=== PATIENT | male | born 1960 | race Caucasian/White ===

== ENCOUNTER 2018-01-25 07:18 | Emergency (ER) | payer SELFPAY ==
[~2018-01-25] VITALS: Ht 165.1 cm; Wt 79.4 kg
[2018-01-25 07:27] VITALS: BP 166/92
[2018-01-25] MEDS ORDERED: METOPROLOL 25 MG TAB PO ONE (07:50)
[2018-01-25] MEDS ORDERED: ASPIRIN 81 MG TAB.CHEW PO ONE (07:50)
[2018-01-25] MEDS ORDERED: NACL 0.9% 1,000 ML IV ONE (07:50)
[2018-01-25 08:10] LABS: BASOPHILS % (AUTO) 0.8 % (0.0-2.0); EOSINOPHILS # (AUTO) 0.1 K/uL (0-0.4); EOSINOPHILS % (AUTO) 1.5 % (0.0-4.0); HEMATOCRIT 42.6 % (36-52); HEMOGLOBIN 14.3 g/dL (12.0-18.0); LYMPHOCYTES # (AUTO) 1.3 K/uL (2.0-11.5); LYMPHOCYTES % (AUTO) 25.9 % (20.5-51.1); MEAN CORPUSCULAR HEMOGLOBIN 31 pg (27-31); MEAN CORPUSCULAR HGB CONC 34 g/dL (33-37); MEAN CORPUSCULAR VOLUME 92.2 fL (80-94); MONOCYTES # (AUTO) 0.3 K/uL (0.8-1.0); MONOCYTES % (AUTO) 5.9 % (1.7-9.3); NEUTROPHILS # (AUTO) 3.4 K/uL (1.8-7.7); NEUTROPHILS % (AUTO) 65.9 % (42.2-75.2); PLATELET COUNT (AUTO) 260 K/uL (140-450); RED BLOOD CELL COUNT(AUTO) 4.62 MIL/uL (4.20-6.10); RED CELL DISTRIBUTION WIDTH 13.8 % (11.6-13.7); WHITE BLOOD COUNT (AUTO) 5.2 K/uL (4.8-10.8)
[2018-01-25 08:34] LABS: ANION GAP 11.3 (8-16); CARBON DIOXIDE 26.9 mmol/L (21-32); POTASSIUM 4.2 mmol/L (3.5-5.1)
[2018-01-25 08:35] LABS: CREATININE 0.7 mg/dL (0.7-1.3)
[2018-01-25 08:55] LABS: PROTHROMBIN TIME 9.4 secs (10.8-13.4)
[2018-01-25 09:27] LABS: ALBUMIN 3.9 g/dL (3.4-5.0); TOTAL BILIRUBIN 0.7 mg/dL (0.0-1.0)
[2018-01-25 10:34] VITALS: BP 136/88
== END 2018-01-25 10:36 | disposition home or self-care (01) ==
LOC: MED 07:18
DX: G93.89 Other specified disorders of brain (principal); R03.0 Elevated blood-pressure reading, without diagnosis of hypertension; H90.2 Conductive hearing loss, unspecified; R20.0 Anesthesia of skin; Z88.6 Allergy status to analgesic agent
CPT/HCPCS: 36415; 70450; 71045; 80053; 82948; 84484; 85025; 85610; 85730; 93005; 99285; J7030

== ENCOUNTER 2019-02-15 14:04 | Inpatient (IN) | payer OTHER ==
[~2019-02-15] VITALS: Ht 154.9 cm; Wt 74.8 kg
[2019-02-15 14:10] VITALS: BP 137/67
[2019-02-15] MEDS ORDERED: ASPIRIN 81 MG TAB.CHEW PO ONE (14:40)
[2019-02-15] MEDS ORDERED: NACL 0.9% 1,000 ML IV ONE (14:40)
--- NOTE | 2019-02-15 14:53 | NUR ---
blood collected and handed to lab
[2019-02-15 14:59] LABS: BASOPHILS % (AUTO) 0.6 % (0.0-2.0); EOSINOPHILS # (AUTO) 0.1 K/uL (0-0.4); EOSINOPHILS % (AUTO) 1.6 % (0.0-4.0); HEMATOCRIT 41.2 % (36-52); HEMOGLOBIN 13.7 g/dL (12.0-18.0); LYMPHOCYTES # (AUTO) 1.4 K/uL (2.0-11.5); LYMPHOCYTES % (AUTO) 19.1 % (20.5-51.1); MEAN CORPUSCULAR HEMOGLOBIN 31 pg (27-31); MEAN CORPUSCULAR HGB CONC 33 g/dL (33-37); MEAN CORPUSCULAR VOLUME 94.2 fL (80-94); MONOCYTES # (AUTO) 0.4 K/uL (0.8-1.0); MONOCYTES % (AUTO) 5.5 % (1.7-9.3); NEUTROPHILS # (AUTO) 5.4 K/uL (1.8-7.7); NEUTROPHILS % (AUTO) 73.2 % (42.2-75.2); PLATELET COUNT (AUTO) 269 K/uL (140-450); RED BLOOD CELL COUNT(AUTO) 4.37 MIL/uL (4.20-6.10); WHITE BLOOD COUNT (AUTO) 7.4 K/uL (4.8-10.8)
[2019-02-15 15:10] LABS: PROTHROMBIN TIME 9.3 secs (10.8-13.4)
[2019-02-15 15:13] LABS: ANION GAP 13.2 (8-16); CARBON DIOXIDE 25.9 mmol/L (21-32); CREATININE 0.7 mg/dL (0.7-1.3); POTASSIUM 4.1 mmol/L (3.5-5.1)
--- NOTE | 2019-02-15 15:14 | NUR ---
PT ARRIVED TO ED C/O CHEST PAIN AND LIGHT HEADEDNESS X 3DAYS. PT DESCRIBES PAIN CRUSHING AND RATES PAIN 6/10. LUNG SOUNDS NORMAL THROUGHOUT. NO RESP DISTRESS. HEART SOUND REGULARLY IRREGULAR. PULSES IRREGULAR. CAP REFILL < 3. VS STABLE. NKA. DENIES PMH.
[2019-02-15 15:20] LABS: ALBUMIN 3.7 g/dL (3.4-5.0); TOTAL BILIRUBIN 0.3 mg/dL (0.0-1.0)
[2019-02-15] MEDS ORDERED: DOCUSATE SODIUM 100 MG GELCAP PO PRN (16:05)
[2019-02-15] MEDS ORDERED: ONDANSETRON 4 MG/2 ML VIAL IM/IVP PRN (16:05)
[2019-02-15] MEDS ORDERED: ACETAMINOPHEN 325 MG TAB PO PRN (16:05)
[2019-02-15] MEDS ORDERED: HYDROcodone/APAP 7.5/325 MG 1 TAB PO PRN (16:05)
[2019-02-15] MEDS ORDERED: KETOROLAC 30 MG/ML VIAL IVP PRN (16:05)
[2019-02-15] MEDS ORDERED: MORPHINE SULFATE 2 MG/ML SYR IVP PRN (16:05)
--- NOTE | 2019-02-15 16:26 | NUR ---
PT LAYING COMFORTABLY IN BED, NO GRIMACING, DENIES PAIN, AND IS USING CELL PHONE.
--- NOTE | 2019-02-15 17:15 | NUR ---
PATEINT TAKEN DOWN TO [facility]
[2019-02-15 17:19] LABS: APPEARANCE,URINE CLEAR (CLEAR); BILIRUBIN,URINE NEGATIVE (NEGATIVE); BLOOD, URINE NEGATIVE (NEGATIVE); COLOR,URINE YELLOW (YELLOW); LEUKOCYTE ESTERASE ,URINE NEGATIVE (NEGATIVE); NITRITE, URINE NEGATIVE (NEGATIVE); UGLUCOSE NEGATIVE (NEGATIVE)
[2019-02-15 17:22] LABS: CHOL/HDL RATIO 2.9 (1-4.5); FREE T4 (FREE THYROXINE) 0.82 ng/dL (0.76-1.46); HDL CHOLESTEROL 64 mg/dL (40-60); LDL (CALC) 99 mg/dL (60-100); LIPASE 224 U/L (73-393); MAGNESIUM 1.9 mg/dL (1.8-2.4); PHOSPHORUS 3.9 mg/dL (2.5-4.9); THYROID STIMULATING HORMONE 3.39 uIU/mL (0.34-3.74); TRIGLYCERIDES 125 mg/dL (30-150)
--- NOTE | 2019-02-15 17:23 | NUR ---
Patient will be admitted to care of [facility] . Admited to TELE. Will go to room 113. Belongings list completed. Report to MARY ANN ESPOSITO.
[2019-02-15 17:40] VITALS: BP 157/59
[2019-02-15] MEDS: NACL 0.9% 1,000 ML IV SCH (18:05)
--- NOTE | 2019-02-15 19:15 | NUR ---
RECEIVED PT IN STABLE CONDITION FROM CO NURSE FOR CONTINUITY OF CARE. AWAKE,ALERT AND ORIENTED X4. ON TELE MONITOR-SB. NO C/O ANY DISCOMFORT NOR PAIN NOTED AT THIS TIME. WITH IVF INFUSING WELL ON THE LT FAG#20 . CLEAR AND PATENT. PLAN OF CARE DISCUSSED AND VERBALIZED UNDERSTANDING. BED ON LOW POSITION. CALL LIGHT AND URINAL WITHIN EASY REACH. SIDE RAILS UP X2. WILL CONTINUE TO MONITOR.
[2019-02-15 19:45] VITALS: BP 153/52
--- NOTE | 2019-02-15 22:00 | NUR ---
PATIENT REFUSED EKG. RESIDENT AWARE
--- NOTE | 2019-02-15 22:00 | NUR ---
PT REFUSED BLOOD DRAW AT THIS TIME. DR. FERNANDEZ MADE AWARE.
[2019-02-16 00:55] VITALS: BP 130/78
--- NOTE | 2019-02-16 00:55 | NUR ---
VITAL SIGNS TAKEN. BP 130/78, HR-69. O2 SAT 99% ON ROOM AIR. WILL CONTINUE TO MONITOR.
--- NOTE | 2019-02-16 01:39 | NUR ---
CHECK ON PT ASLEEP. WITH NO S/S OF ANY DISTRESS NOTED. WILL CONTINUE TO MONITOR.
--- NOTE | 2019-02-16 04:00 | NUR ---
MADE ROUNDS. VITAL SIGNS TAKEN. NO C/O ANY DISCOMFORT NOTED.
[2019-02-16 04:10] VITALS: BP 133/67
[2019-02-16] MEDS: NACL 0.9% 1,000 ML IV SCH ×2 (04:35→05:58)
--- NOTE | 2019-02-16 06:00 | NUR ---
NEW IV BAG HUNG.INFUSING WELL. NO C/O ANY PAIN NOTED. WILL CONTINUE TO MONITOR.
--- NOTE | 2019-02-16 07:15 | NUR ---
ENDORSED PT IN STABLE CONDITION TO AM NURSE.
--- NOTE | 2019-02-16 07:20 | NUR ---
RECEIVED BEDSIDE REPORT FROM NIGHT NURSE. PT IN STABLE CONDITION. AAOX4. RESPIRATIONS EVEN AND UNLABORED. SKIN INTACT. IV IN PLACE L FA 20G INFUSING PER ORDER. ON ROOM AIR. PT DENIES PAIN. COOPERATIVE. SAFETY MEASURES IN PLACE. BED IN LOW POSITION. CALL LIGHT WITHIN REACH. WILL CONTINUE TO MONITOR.
[2019-02-16 08:00] VITALS: BP 153/60
[2019-02-16 08:06] LABS: BASOPHILS % (AUTO) 0.6 % (0.0-2.0); EOSINOPHILS # (AUTO) 0.1 K/uL (0-0.4); EOSINOPHILS % (AUTO) 2.6 % (0.0-4.0); HEMATOCRIT 39.9 % (36-52); HEMOGLOBIN 13.2 g/dL (12.0-18.0); LYMPHOCYTES # (AUTO) 1.5 K/uL (2.0-11.5); LYMPHOCYTES % (AUTO) 27.6 % (20.5-51.1); MEAN CORPUSCULAR HEMOGLOBIN 31 pg (27-31); MEAN CORPUSCULAR HGB CONC 33 g/dL (33-37); MEAN CORPUSCULAR VOLUME 93.8 fL (80-94); MONOCYTES # (AUTO) 0.4 K/uL (0.8-1.0); MONOCYTES % (AUTO) 6.3 % (1.7-9.3); NEUTROPHILS # (AUTO) 3.5 K/uL (1.8-7.7); NEUTROPHILS % (AUTO) 62.9 % (42.2-75.2); PLATELET COUNT (AUTO) 247 K/uL (140-450); RED BLOOD CELL COUNT(AUTO) 4.25 MIL/uL (4.20-6.10); RED CELL DISTRIBUTION WIDTH 14.1 % (11.6-13.7); WHITE BLOOD COUNT (AUTO) 5.6 K/uL (4.8-10.8)
--- NOTE | 2019-02-16 08:14 | NUR ---
PATIENT HAS BEEN SCREENED AND CATEGORIZED MODERATE NUTRITION RISK. PATIENT WILL BE SEEN WITHIN 3-5 DAYS OF ADMISSION. 02/18/19 02/20/[address]
[2019-02-16 08:37] LABS: ANION GAP 9.6 (8-16); CARBON DIOXIDE 27.5 mmol/L (21-32); CREATININE 0.7 mg/dL (0.7-1.3); POTASSIUM 4.1 mmol/L (3.5-5.1)
[2019-02-16] MEDS: ASPIRIN 81 MG TAB.CHEW PO SCH (08:39)
[2019-02-16] MEDS: ATORVASTATIN 20 MG TAB PO SCH (08:39)
--- NOTE | 2019-02-16 08:49 | NUR ---
MEDICATIONS ADMINISTERED PER ORDER. PT TOLERATED WELL. NO DISTRESS NOTED. WILL CONTINUE TO MONITOR.
[2019-02-16 09:45] LABS: CHOL/HDL RATIO 2.8 (1-4.5)
--- NOTE | 2019-02-16 11:30 | NUR ---
VITAL SIGNS TAKEN. PT AWAKE AND COOPERATIVE. NO PAIN OR DISTRESS REPORTED. SAFETY MEASURES IN PLACE. WILL CONTINUE TO MONITOR.
[2019-02-16 12:00] VITALS: BP 144/73
[2019-02-16] MEDS ORDERED: SERTRALINE 50 MG TAB PO SCH (13:00)
--- NOTE | 2019-02-16 13:12 | NUR ---
MEDICATIONS ADMINISTERED PER ORDER. PT TOLERATED WELL. WILL CONTINUE TO MONITOR.
[2019-02-16 16:00] VITALS: BP 144/68
--- NOTE | 2019-02-16 17:14 | NUR ---
ADMINISTERED MEDICATION PER ORDER. PT TOLERATED WELL. NO DISTRESS NOTED. WILL CONTINUE TO MONITOR.
--- NOTE | 2019-02-16 19:15 | NUR ---
REPORT GIVEN TO NIGHT NURSE FOR CONTINUITY OF CARE. PT IN STABLE CONDITION.
--- NOTE | 2019-02-16 19:20 | NUR ---
RECEIVED PT IN STABLE CONDITION FROM AM NURSE. AWAKE,ALERT AND ORIENTED X4. ON TELE MONITOR-SB. WITH NO C/O ANY DISCOMFORT NOR PAIN NOTED AT THIS TIME. HAS IVF INFUSING WELL ON THE LT FA g20 . CLEAR AND PATENT. PLAN OF CARE DISCUSSED AND VERBALIZED UNDERSTANDING. MADE AWARE ABOUT THE PROCEDURE TOM. WITT. BED ON LOW POSITION. FREQ ROUNDS NEEDED. SIDE RAILS UP X2. CALL LIGHT AND URINAL WITHIN EASY REACH. WILL CONTINUE TO MONITOR.
[2019-02-16 19:53] VITALS: BP 139/52
[2019-02-16] MEDS ORDERED: QUEtiapine FUMARATE 25 MG TAB PO SCH (21:00)
--- NOTE | 2019-02-16 21:00 | NUR ---
DUE MEDS GIVEN ORDERED. NO C/O MANY DISCOMFORT NOTED. WILL CONTINUE TO MONITOR.
--- NOTE | 2019-02-16 22:30 | NUR ---
CHECKED ON PT. ASLEEP. NO S/S OF ANY DISTRESS NOTED. WILL CONTINUE TO MONITOR.
[2019-02-17 00:15] VITALS: BP 126/42
--- NOTE | 2019-02-17 00:15 | NUR ---
MADE ROUNDS. VITAL SIGNS TAKEN. STABLE. NO V/CO ANY PAIN NOR DISCOMFORT NOTED.
[2019-02-17 04:02] VITALS: BP 138/49
--- NOTE | 2019-02-17 04:30 | NUR ---
MOUTH CARE DONE. TOLERATED WELL. Addendum: 02/17/19 at 0515 by Cora Carreon RN CANCEL ABOVE NOTES. WRONG PT.
[2019-02-17] MEDS: NACL 0.9% 1,000 ML IV SCH ×3 (06:22→19:31)
--- NOTE | 2019-02-17 07:06 | NUR ---
ENDORSED PT IN STABLE CONDITION TO AM NURSE.
--- NOTE | 2019-02-17 07:21 | NUR ---
RECEIVED PT FROM NIGHT NURSE IN STABLE CONDITION. PT RESTING WITH EYES CLOSED. AROUSABLE TO SPEECH. IV IN PLACE INFUSING PER ORDER, PATENT AND ASYMPTOMATIC. SKIN INTACT. PT DENIES PAIN. NO DISTRESS NOTED. RESPIRATIONS EVEN AND UNLABORED. BED IN LOW POSITION. SAFETY MEASURES IN PLACE. CALL LIGHT WITHIN REACH. WILL CONTINUE TO MONITOR.
[2019-02-17 07:31] LABS: BASOPHILS % (AUTO) 0.6 % (0.0-2.0); EOSINOPHILS # (AUTO) 0.1 K/uL (0-0.4); EOSINOPHILS % (AUTO) 2.2 % (0.0-4.0); HEMOGLOBIN 13.9 g/dL (12.0-18.0); LYMPHOCYTES # (AUTO) 1.8 K/uL (2.0-11.5); LYMPHOCYTES % (AUTO) 30.2 % (20.5-51.1); MEAN CORPUSCULAR HEMOGLOBIN 31 pg (27-31); MEAN CORPUSCULAR HGB CONC 32 g/dL (33-37); MEAN CORPUSCULAR VOLUME 94.2 fL (80-94); MONOCYTES # (AUTO) 0.4 K/uL (0.8-1.0); MONOCYTES % (AUTO) 6.1 % (1.7-9.3); NEUTROPHILS # (AUTO) 3.6 K/uL (1.8-7.7); NEUTROPHILS % (AUTO) 60.9 % (42.2-75.2); PLATELET COUNT (AUTO) 259 K/uL (140-450); RED BLOOD CELL COUNT(AUTO) 4.56 MIL/uL (4.20-6.10); RED CELL DISTRIBUTION WIDTH 13.7 % (11.6-13.7); WHITE BLOOD COUNT (AUTO) 5.9 K/uL (4.8-10.8)
[2019-02-17 08:00] VITALS: BP 112/49
[2019-02-17 08:00] LABS: ANION GAP 13.1 (8-16); CARBON DIOXIDE 26.1 mmol/L (21-32); CREATININE 0.7 mg/dL (0.7-1.3); POTASSIUM 4.2 mmol/L (3.5-5.1)
[2019-02-17] MEDS: ATORVASTATIN 20 MG TAB PO SCH (09:18)
[2019-02-17] MEDS: ASPIRIN 81 MG TAB.CHEW PO SCH (09:18)
[2019-02-17] MEDS: SERTRALINE 50 MG TAB PO SCH (09:18)
--- NOTE | 2019-02-17 09:45 | NUR ---
MEDICATIONS ADMINISTERED PER ORDER. PT TOLERATED WELL. NO DISTRESS NOTED. WILL CONTINUE TO MONITOR.
--- NOTE | 2019-02-17 11:50 | NUR ---
MEDICATIONS ADMINISTERED PER ORDER. PT TOLERATED WELL. NO DISTRESS NOTED. WILL CONTINUE TO MONITOR.
[2019-02-17 12:00] VITALS: BP 133/65
[2019-02-17] MEDS ORDERED: REGADENOSON 0.4 MG/5 ML SYR IV SCH (15:00)
--- NOTE | 2019-02-17 15:00 | NUR ---
REAL FROM CARDIO PICKED UP LEXISCAN MEDICATION FROM PHARMACY AND GAVE IT TO MIRYAM SALAZAR DURING PROCEDURE.
--- NOTE | 2019-02-17 15:45 | NUR ---
PTS VITAL SIGNS MONITORED. PT DENIES PAIN AND IS IN NO DISTRESS. WILL CONTINUE TO MONITOR.
[2019-02-17 16:00] VITALS: BP 143/73
--- NOTE | 2019-02-17 16:02 | NUR ---
PT TRANSPORTED OFF UNIT FOR PROCEDURE IN STABLE CONDITION
--- NOTE | 2019-02-17 16:47 | NUR ---
PT RETURNS TO UNIT AFTER PROCEDURE IN STABLE CONDITION. NO DISTRESS NOTED. WILL CONTINUE TO MONITOR.
--- NOTE | 2019-02-17 19:10 | NUR ---
REPORT GIVEN TO NIGHT NURSE FOR CONTINUITY OF CARE. PT IN STABLE CONDITION.
--- NOTE | 2019-02-17 19:15 | NUR ---
RECEIVED PT ON BED, AAOX4, VITAL SIGNS TAKEN, SB ON TELE, DENIES ANY CHEST PAIN BUT COMPLAINING OF HEADACHE, WILL MEDICATED WITH TYLENOL PO, DENIES SOB, IVF INFUSING WELL, PLAN OF CARE DISCUSSED, SAFETY MEASURES IN PLACE, CALL LIGHT WITHIN REACH.
[2019-02-17 20:00] VITALS: BP 118/73
--- NOTE | 2019-02-17 20:55 | NUR ---
DUE MEDS ADMINISTERED WITH EDUCATION PROVIDED, TYLENOL NOT EFFECTIVE, MEDICATED WITH TORADOL IVP FOR HEADACHE, MONITORED CLOSELY.
[2019-02-17] MEDS ORDERED: QUEtiapine FUMARATE 25 MG TAB PO SCH (21:00)
--- NOTE | 2019-02-18 | NUR ---
PT SLEEPING, EASILY AROUSABLE, VITAL SIGNS TAKEN, BP ON THE LOW SIDE BUT STABLE, DENIES ANY PAIN, NO SOB NOTED, IVF INFUSING WELL, CONTINUE TO MONITOR CLOSELY.
[2019-02-18 00:16] VITALS: BP 106/36
[2019-02-18 04:35] VITALS: BP 106/62
--- NOTE | 2019-02-18 04:35 | NUR ---
PT SLEEPING, EASILY AROUSABLE, VITAL SIGNS TAKEN, SB ON TELE, ASYMPTOMATIC, DENIES PAIN AND NO SOB NOTED, IVF INFUSING WELL, MONITORED CLOSELY.
--- NOTE | 2019-02-18 06:10 | NUR ---
PT SLEEPING, NO SIGNS OF DISTRESS, IVF INFUSING WELL, AWAITING L[place]ISCAN REPORT, MONITORED CLOSELY.
[2019-02-18] MEDS: NACL 0.9% 1,000 ML IV SCH (06:35)
--- NOTE | 2019-02-18 07:21 | NUR ---
PT RECEIVED FROM NIGHT RNRAINER. PT IN BED. 20 G IV TO L FA PATENT WITH NS AT 80 ML/HR RUNNING. PT AAOX4. BREATHING EVEN AND UNLABORED ON ROOM AIR. NO SIGNS OF ACUTE DISTRESS AT THIS TIME. WILL CONTINUE CARE.
--- NOTE | 2019-02-18 07:21 | NUR ---
PT AWAKE, NO SIGNS OF DISTRESS, REPORT GIVEN TO MARY ANN PIERCE FOR CONTINUITY OF CARE.
[2019-02-18 08:00] VITALS: BP_SYST 107; BP_SYST 113; BP_DIAS 45
--- NOTE | 2019-02-18 08:28 | NUR ---
BEDSIDE REPORT RECEIVED FROM STAN REESE FOR CONTINUITY OF CARE.
[2019-02-18] MEDS: ASPIRIN 81 MG TAB.CHEW PO SCH (09:43)
[2019-02-18] MEDS: SERTRALINE 50 MG TAB PO SCH (09:44)
[2019-02-18] MEDS: ATORVASTATIN 20 MG TAB PO SCH (09:44)
--- NOTE | 2019-02-18 09:49 | NUR ---
ADMINISTERED MEDS PER MD ORDER, PATIENT TOLERATED WELL. MEDS EDUCATION PROVIDED TO PATIENT AND PATIENT VERBALIZED UNDERSTANDING. PATIENT DENIED PAIN, SOB AND DIZZINESS. PATIENT IS SITTING UP ON BED AND PLAYING WITH HIS PHONE AT THIS TIME. NO SIGNS OF DISTRESS NOTED. TELE MONITOR ATTACHED. SAFETY MEASURES IN PLACE. BED IN LOW POSITION AND CALL LIGHT WITHIN REACH. INSTRUCTED PATIENT TO USE THE CALL LIGHT FOR ANY ASSISTANCE AND PATIENT WAS AWARE.
--- NOTE | 2019-02-18 11:28 | NUR ---
RESUMED PT CARE FROM MARY ANN GONZALEZ. PT IN BED. AAOX4. NO SIGNS OF ACUTE DISTRESS AT THIS TIME.
[2019-02-18 12:00] VITALS: BP 137/51
--- NOTE | 2019-02-18 12:35 | NUR ---
PT REQUESTED THAT I RETURN FOR 1200 VITALS AFTER HE FINISHES LUNCH. PT AAOX4, BREATHING EVEN AND UNLABORED ON ROOM AIR. NO SIGNS OF ACUTE DISTRESS AT THIS TIME.
--- NOTE | 2019-02-18 13:00 | NUR ---
PT IN BED WITH PHONE IN HAND. BREATHING EVEN AND UNLABORED ON ROOM AIR. PT VITALS OBTAINED AND TRENDING WITH BASELINE. PT LUNCH TRAY REMOVED, 100% OF LUNCH EATEN. NO SIGNS OF ACUTE DISTRESS AT THIS TIME. PT DENIES PAIN. WILL CONTINUE TO ASSESS FOR CHANGES ON CONDITION.
[2019-02-18] MEDS ORDERED: SERT-146 PO (14:21)
[2019-02-18] MEDS ORDERED: TAMS0.4C96 PO (14:21)
[2019-02-18] MEDS ORDERED: QUET25TA46 PO (14:21)
--- NOTE | 2019-02-18 15:07 | NUR ---
PT REQUESTED A CHICKEN OR TUNA SANDWICH. [facility] WAS CALLED AND VOICEMAIL LEFT. PT IN BED AAOX4. NO SIGNS OF ACUTE DISTRESS AT THIS TIME.
[2019-02-18 15:34] VITALS: BP 137/51
--- NOTE | 2019-02-18 16:30 | NUR ---
PT RECEIVED DISCHARGE INSTRUCTIONS AND RECEIVED TEACHING REGARDING FOLLOW-UP APPOINTMENT AND DISCHARGE PRESCRIPTION. PT RECEIVED SIDE EFFECT INFORMATION REGARDING NEW PRESCRIPTION, ALL QUESTIONS ANSWERED. PT 20 G IV TO R FA REMOVED, CATHETER INTACT. ID BANDS CUT OFF.
--- NOTE | 2019-02-18 16:35 | NUR ---
PT STATED HE DID NOT HAVE A PCP AND DID NOT KNOW HOW TO GET ONE. PER CHARGE NURSE, DR SAEZ WAS NOTIFIED AND HE WILL PROVIDE PCP INFORMATION TO PATIENT. PATIENT WILL BE OFFICIALLY DISCHARGED WHEN THAT INFORMATION IS RECEIVED.
--- NOTE | 2019-02-18 16:55 | NUR ---
FOLLOW-UP INFORMATION FROM DISCHARGE INSTRUCTIONS GIVEN TO PT: [facility] [address] [place] [address]
== END 2019-02-18 16:55 | disposition home or self-care (01) | DRG 206 ==
LOC: MED 14:04 → MTU 16:05
PROVIDERS: ADMIT Family Medicine; ATTEND Family Medicine
DX: M94.0 Chondrocostal junction syndrome [Tietze] (principal); R00.1 Bradycardia, unspecified; M19.90 Unspecified osteoarthritis, unspecified site; N40.0 Benign prostatic hyperplasia without lower urinary tract symptoms; Z91.041 Radiographic dye allergy status; Z91.19 Patient's noncompliance with other medical treatment and regimen
CPT/HCPCS: 36415; 70450; 71045; 80048; 80053; 81003; 82550; 82553; 83036; 83605; 83690; 83735; 83880; 84100; 84439; 84443; 84484; 85025; 85610; 85730; 87081; 93005; 93017; 96360; 96361; 99285; A9500; A9502; J1644; J1885; J2785; J7030

== ENCOUNTER 2019-02-25 07:05 | Outpatient (CLI) | payer OTHER ==
[~2019-02-25 07:05] MED LIST: QUET25TA46 PO; SERT-146 PO; TAMS0.4C96 PO
[2019-02-25 07:57] LABS: BASOPHILS % (AUTO) 0.7 % (0.0-2.0); EOSINOPHILS # (AUTO) 0.1 K/uL (0-0.4); EOSINOPHILS % (AUTO) 2.2 % (0.0-4.0); HEMATOCRIT 42.9 % (36-52); LYMPHOCYTES # (AUTO) 1.7 K/uL (2.0-11.5); LYMPHOCYTES % (AUTO) 32.7 % (20.5-51.1); MEAN CORPUSCULAR HEMOGLOBIN 31 pg (27-31); MEAN CORPUSCULAR HGB CONC 33 g/dL (33-37); MEAN CORPUSCULAR VOLUME 94.5 fL (80-94); MONOCYTES # (AUTO) 0.3 K/uL (0.8-1.0); MONOCYTES % (AUTO) 6.3 % (1.7-9.3); NEUTROPHILS # (AUTO) 3.1 K/uL (1.8-7.7); NEUTROPHILS % (AUTO) 58.1 % (42.2-75.2); PLATELET COUNT (AUTO) 268 K/uL (140-450); RED BLOOD CELL COUNT(AUTO) 4.54 MIL/uL (4.20-6.10); WHITE BLOOD COUNT (AUTO) 5.3 K/uL (4.8-10.8)
[2019-02-25 08:31] LABS: ANION GAP 12.6 (8-16); CARBON DIOXIDE 26.3 mmol/L (21-32); CHOL/HDL RATIO 2.4 (1-4.5); CREATININE 0.8 mg/dL (0.7-1.3); FREE T4 (FREE THYROXINE) 0.76 ng/dL (0.76-1.46); POTASSIUM 3.9 mmol/L (3.5-5.1); TOTAL BILIRUBIN 0.8 mg/dL (0.0-1.0)
[2019-02-25 10:42] LABS: APPEARANCE,URINE CLEAR (CLEAR); BILIRUBIN,URINE NEGATIVE (NEGATIVE); BLOOD, URINE NEGATIVE (NEGATIVE); COLOR,URINE YELLOW (YELLOW); LEUKOCYTE ESTERASE ,URINE NEGATIVE (NEGATIVE); NITRITE, URINE NEGATIVE (NEGATIVE); UGLUCOSE NEGATIVE (NEGATIVE)
[2019-02-26 06:07] LABS: TRIIODOTHYRONINE FREE 2.7 pg/mL (2.0-4.4)
== END 2019-02-25 21:00 | disposition home or self-care (01) ==
LOC: MLB 07:05
PROVIDERS: ATTEND Family Medicine
DX: Z00.00 Encounter for general adult medical examination without abnormal findings (principal)
CPT/HCPCS: 36415; 80053; 81003; 82272; 82306; 83036; 84439; 84480; 84481; 85025